=== PATIENT | male | born 1945 | race Hispanic/Latino ===

== ENCOUNTER 2019-03-02 05:57 | Day surgery (SDC) | payer MEDICARE ==
[2019-03-01 12:48] VITALS: BMI 25.0
[2019-03-02] MEDS ORDERED: Midazolam 2 MG/2 ML VIAL ONE (07:28)
[2019-03-02] MEDS ORDERED: Propofol 10 mg/ml Inj (20 ML) ONE (07:28)
[2019-03-02] MEDS ORDERED: cefTRIAXone 1 gm 1 GM/100 ML BAG IVPB ONE (07:37)
[2019-03-02] MEDS ORDERED: Lidocaine 2% Jelly (Uro-Jet) ONE (07:38)
[2019-03-02] MEDS ORDERED: HYDROmorphone 0.5 mg/0.5 ml ISec IVP PRN (08:14)
[2019-03-02 10:32] VITALS: TEMP 97.6
[2019-03-02 11:07] VITALS: BP 138/79; PULSE 55; RESP 18; O2SAT 96
--- NOTE | 2019-03-02 14:45 | OP ---
PROCEDURE DATE: 03/02/2019 PREOPERATIVE DIAGNOSES: Bladder tumor, hematuria. POSTOPERATIVE DIAGNOSES: Bladder tumor, hematuria. PROCEDURE: Cystoscopy with transurethral resection of bladder tumor. DESCRIPTION OF PROCEDURE: The patient was placed on the operating room table in the dorsal lithotomy position. The area of the groin was draped and prepped in a sterile manner. He was given general anesthesia. Using sound, I calibrated the urethra to a size #26 [place] and then, I inserted a #24 continuous low resectoscope. Once inside the bladder, I identified the area in the left lateral wall that appears to show front-like formation and a friable tissue. To me, it appeared to be bladder tumor. I resected that area. There was a small area in the bladder base that appeared to be usual as well and I resected that area. I sent all the specimens for analysis. Following this, I then cauterized amply the area of resection and it was 95% clear at the time we stopped the cauterizing. At that time, I removed the resectoscope and inserted a #20 [place]ovan 2-way Diop catheter and estimated blood loss to be less than 20 mL. The patient was taken from the operating room in good condition. Josefina Stack MD
== END 2019-03-02 11:12 | disposition home or self-care (01) ==
LOC: C.SDS 05:57
PROVIDERS: ATTEND Urology
DX: C67.2 Malignant neoplasm of lateral wall of bladder (principal); R31.0 Gross hematuria
CPT/HCPCS: 52234; 88305; J0696; J1170